=== PATIENT | female | born 1965 | race Caucasian/White ===

== ENCOUNTER 2025-04-26 12:00 | Outpatient (CLI) | payer MEDICAID, SELFPAY ==
--- NOTE | 2025-04-26 12:40 | MM_ITS ---
WS: [id number] Bilateral screening 3D tomosynthesis digital mammogram, 04/26/2025 12:10 PM Clinical Data: SCREENING Comparison: 09/04/2023, 01/24/2022, 11/16/2015, 01/29/2008, 05/21/2006. Findings: No spiculated masses or clustered calcifications are seen. There are no secondary signs of carcinoma. There are mole markers on both breasts. There are scattered benign calcifications in both breasts. MM/MM scr BI tomosynthesis [id number] Impression: Negative bilateral mammogram unchanged. Recommend annual screening mammograms. BIRADS: 1 - Negative. FOLLOW UP: 1 Year Follow-up DENSITY: There are scattered areas of fibroglandular density. The CAD thread checker was used
== END 2025-04-26 12:01 | disposition home or self-care (01) ==
LOC: MOBLMAM 12:02
PROVIDERS: PCP Internal Medicine; Visit Provider Internal Medicine
DX: Z12.31 Encounter for screening mammogram for malignant neoplasm of breast (principal); R92.1 Mammographic calcification found on diagnostic imaging of breast; R92.8 Other abnormal and inconclusive findings on diagnostic imaging of breast
CPT/HCPCS: 77063; 77067